=== PATIENT | male | born 1940 | race Caucasian/White ===

== ENCOUNTER → 2024-02-20 15:11 | Outpatient (REF) | payer MEDICARE, BC, SELFPAY | LOC: RAD 15:11 | PROVIDERS: ATTENDING PHYSICIAN Physician Assistant Medical; FAMILY PHYSICIAN Family Medicine | DX: R05.3 Chronic cough (principal); J20.9 Acute bronchitis, unspecified | CPT/HCPCS: 71046 ==

== ENCOUNTER → 2024-06-14 07:56 | Outpatient (REF) | payer MEDICARE, BC, SELFPAY | LOC: DHVS 07:56 | PROVIDERS: ATTENDING PHYSICIAN Surgery Vascular Surgery; FAMILY PHYSICIAN Family Medicine | DX: I73.9 Peripheral vascular disease, unspecified (principal) | CPT/HCPCS: 93922; 93925 ==